=== PATIENT | female | born 1985 | race Caucasian/White ===

== ENCOUNTER → 2017-01-02 | Outpatient (CLI) | payer BC ==
[2017-01-07 16:37] LABS: G002-IGE BERMUDA GRASS <0.10 kU/L (Class 0); G006-IGE TIMOTHY GRASS <0.10 kU/L (Class 0); G010-IGE JOHNSON GRASS <0.10 kU/L (Class 0); G017-IGE BAHIA GRASS <0.10 kU/L (Class 0); I100-IGE COCKROACHAMERICAN <0.10 kU/L (Class 0); M001-IGE PENICILLIUM CHRYSOGEN <0.10 kU/L (Class 0); M002-IGE CLADOSPORIUM HERBARUM <0.10 kU/L (Class 0); M003-IGE ASPERGILLUS FUMIGATUS <0.10 kU/L (Class 0); M004-IGE MUCOR RACEMOSUS <0.10 kU/L (Class 0); M006-IGE ALTERNARIA ALTERNATA <0.10 kU/L (Class 0); M010-IGE STEMPHYLIUM HERBARUM <0.10 kU/L (Class 0); T001-IGE MAPLE/BOX ELDER <0.10 kU/L (Class 0); T003-IGE BIRCH SILVER <0.10 kU/L (Class 0); T006-IGE CEDAR MOUNTAIN <0.10 kU/L (Class 0); T007-IGE OAK WHITE <0.10 kU/L (Class 0); T008-IGE ELM AMERICAN (WHITE <0.10 kU/L (Class 0); T011-IGE MAPLE LEAF SYCAMORE <0.10 kU/L (Class 0); T041-IGE HICKORY WHITE <0.10 kU/L (Class 0); T211-IGE SWEET GUM <0.10 kU/L (Class 0); W001-IGE RAGWEED SHORT/COMMO 0.77 kU/L (Class II); W006-IGE MUGWORT 0.59 kU/L (Class II); W009-IGE PLANTAIN ENGLISH <0.10 kU/L (Class 0); W014-IGE PIGWEED ROUGH <0.10 kU/L (Class 0); W018-IGE SHEEP SORREL(DOCK) <0.10 kU/L (Class 0)
[2017-01-08 08:30] LABS: W020-IGE NETTLE <0.10 kU/L (Class 0)
== END ==
LOC: OD 15:30
PROVIDERS: ATTEND Otolaryngology
DX: J01.21 Acute recurrent ethmoidal sinusitis (principal); J34.2 Deviated nasal septum
CPT/HCPCS: 36415; 86003

== ENCOUNTER → 2017-01-20 | Outpatient (CLI) | payer BC ==
--- NOTE | 2017-01-20 16:10 | RADIOLOGY REPORT (SQ) ---
EXAM DESCRIPTION: CT SINUSES FOR ENT COMPLETED DATE/TIME: 01/20/2017 1:25 pm REASON FOR STUDY: ACUTE RECURRENT ETHMOIDAL SINUSITIS J01.21 ACUTE RECURRENT ETHMOIDAL SINUSITIS COMPARISON: Nasal bone films 12/18/2011 TECHNIQUE: Noncontrast scanning through the paranasal sinuses using bone algorithm. Reconstructed MPR images reviewed. All images stored on PACS. Images acquired for image guided surgery. All CT scanners at this facility use dose modulation, iterative reconstruction, and/or weight based d osing when appropriate to reduce radiation dose to as low as reasonably achievable (ALARA). [facility]: Dose Right [facility]: CareDose [facility]: Dose Right [facility]: Teradose 4D [facility]: [employer] RADIATION DOSE: 60.28 mGy. FINDINGS: Old healed nasal bone fracture axial image 24. NASAL PASSAGES: Nasal passages are clear. Mild rightward nasal septal deviation. No polyps or masses . OSTEOMEATAL UNITS AND NASOFRONTAL DUCTS: Small Adonis cell on the right on coronal image 81 without n arrowing of the right ostiomeatal complex. Right OMC is patent on coronal images 78-82. On the left side, there is mucous membrane thickening near completely opacified and maxillary outlets on coronal images 73-86. MAXILLARY SINUSES: Right maxillary sinus is clear. Left maxillary sinus is completely opacified. ETHMOID SINUSES: Right-sided ethmoid air cells are clear. Left anterior ethmoid air cells exhibit mu cous membrane thickening and have few air-fluid levels on axial images 18-22. SPHENOID SINUSES: Well-pneumatized and clear. No sphenoethmoid air cells or pneumatized pterygoid rec ess. No pneumatized dorsal sella. FRONTAL SINUSES: Well-pneumatized and clear. MASTOID AIR CELLS: Clear. ORBITS: Normal and symmetrical. NASAL SEPTUM: Mild rightward nasal septal deviation. No nasal septal spurs. TEMPOROMANDIBULAR JOINTS: Normal. TURBINATES: No pneumatized turbinates. OTHER: Inferior brain parenchyma in the field of view unremarkable IMPRESSION: Left maxillary and anterior ethmoid sinusitis. TECHNICAL DOCUMENTATION: JOB ID: [id number] Quality ID # [id number]: Final reports with documentation of one or more dose reduction techniques (e.g., Au tomated exposure control, adjustment of the mA and/or kV according to patient size, use of iterative reconstruction technique) 2010 [employer]- All Rights Reserved
== END ==
LOC: RAD 12:53
PROVIDERS: ATTEND Otolaryngology
DX: J01.21 Acute recurrent ethmoidal sinusitis (principal)
CPT/HCPCS: 70486